=== PATIENT | female | born 1945 | race Caucasian/White ===

== ENCOUNTER 2019-09-16 09:55 | Emergency (ER) | payer OTHER ==
[~2019-09-16] VITALS: Ht 154.9 cm; Wt 55.8 kg
[2019-09-16 10:02] VITALS: Ht 154.9 cm; Wt 55.8 kg
[2019-09-16 13:40] VITALS: BP 1137/74
== END 2019-09-16 13:40 | disposition home or self-care (01) ==
LOC: ED 09:55
DX: G43.909 Migraine, unspecified, not intractable, without status migrainosus (principal)
CPT/HCPCS: J0780; J3475; J7030

== ENCOUNTER 2019-09-16 21:31 | Emergency (ER) | payer OTHER ==
[~2019-09-16] VITALS: Ht 154.9 cm; Wt 55.8 kg
[2019-09-16 21:46] VITALS: Ht 154.9 cm; Wt 55.8 kg
[2019-09-16 23:30] VITALS: BP 134/60
== END 2019-09-16 23:55 | disposition home or self-care (01) ==
LOC: ED 21:31
DX: T78.40XA Allergy, unspecified, initial encounter (principal); J45.909 Unspecified asthma, uncomplicated; K21.9 Gastro-esophageal reflux disease without esophagitis; G43.909 Migraine, unspecified, not intractable, without status migrainosus; Z88.1 Allergy status to other antibiotic agents; Z88.2 Allergy status to sulfonamides; Z88.8 Allergy status to other drugs, medicaments and biological substances; X58.XXXA Exposure to other specified factors, initial encounter
CPT/HCPCS: J1200